=== PATIENT | male | born 1945 | race Caucasian/White ===

== ENCOUNTER 2016-10-31 23:15 | Inpatient (IN) | payer MEDICARE, OTHER ==
[~2016-10-31] VITALS: Ht 172.7 cm; Wt 76.7 kg
[~2016-10-31 23:15] MED LIST: AMLO2.5T PO; ASPI-482 PO; ATOR10TA PO; CLAR500T PO; CLOP75TA27 PO; ISOS10TA4 PO; LACT1TAB24 PO; LOSA25TA4 PO; MULT1TAB87 PO; NITR0.4T6 SL; OMEG300C PO; OMEP20CA5 PO; PANT40TA5 PO; PRED-220 PO; PRED5TAB PO
[2016-10-31] MEDS ORDERED: fentaNYL PF VIAL 100 MCG/2 ML VIAL IM ONE (23:30)
--- NOTE | 2016-10-31 23:32 | PHYS DOC ---
Past Medical History Past Medical History: CAD, GERD, High Cholesterol, Hypertension Past Surgical History: Other Additional Past Surgical Histo: Stents x 7; shoulder; left hand; hernia Alcohol Use: Occasionally Drug Use: None Adult General Chief Complaint Chief Complaint: LOWER BACK PAIN OR INJURY [facility] HPI Patient is a 71 year old male presents emergency Department with complaint of low back pain, back spasms that began approximately 9 PM this evening. Patient states that he was approximately 4-5 feet up on a ladder yesterday he went to the base of the ladder "kicked out" from underneath him resulting in a fall. He states he landed on top of the ladder. He denies loss of consciousness at the time of fall. He did hit the bridge of his nose as well as having some skin tears to his right forearm and his left elbow. Patient states he was otherwise doing fine and continued on several activities at the course the day as well as today. He states he is continuing with light activity and it is not bothering him. He states that when he was attempting to get up out of his chair this evening around 9 PM, states that he began to experience a lot of pain, tightness and spasms of the left side of his back. He denies radiation of the pain. He denies saddle anesthesia or incontinence of urine and bowel. Patient has had a previous low back surgery. He denies having any existing hardware in his back. Review of Systems Review of Systems Constitutional: Denies fever or chills [] Eyes: Denies change in visual acuity, redness, or eye pain [] HENT: Denies nasal congestion or sore throat [] Respiratory: Denies cough or shortness of breath [] Cardiovascular: No additional information not addressed in HPI [] GI: Denies abdominal pain, nausea, vomiting, bloody stools or diarrhea [] : Denies dysuria or hematuria [] Musculoskeletal: Denies back pain or joint pain [] Integument: Denies rash or skin lesions [] Neurologic: Denies headache, focal weakness or sensory changes [] Endocrine: Denies polyuria or polydipsia [] Current Medications Current Medications Current Medications Medications (Trade) Dose Ordered Sig/Dorothea Start Time Stop Time Status Last Admin Dose Admin Diazepam (Valium) 10 mg 1X ONCE 10/31/16 23:30 10/31/16 23:58 DC 10/31/16 23:48 10 MG Fentanyl Citrate (Fentanyl 2ml Vial) 50 mcg 1X ONCE 10/31/16 23:30 10/31/16 23:58 DC 10/31/16 23:47 50 MCG Ondansetron HCl (Zofran) 4 mg 1X ONCE 11/01/16 00:30 11/01/16 00:31 DC Sodium Chloride 500 ml @ 500 mls/hr 1X ONCE 11/01/16 00:30 11/01/16 01:29 11/01/16 00:25 500 MLS/HR Sodium Chloride (Normal Saline Flush) 10 ml QSHIFT PRN 11/01/16 00:30 Allergies Allergies Allergies Coded Allergies Type Severity Reaction Last Updated Verified morphine Adverse Reaction Intermediate VOMITING 03/07/16 Yes Physical Exam Physical Exam Constitutional: Well developed, well nourished,moderate distress, non-toxic appearance. Patient winces and groans in pain when he experienced spasms in his back. HENT: Normocephalic, bilateral external ears normal, oropharynx moist, no oral exudates, nose normal. Bruising to left side of his nasal bridge. There is no septal hematoma or active bleeding at this time. Eyes: PERRLA, EOMI, conjunctiva normal, no discharge. [] Neck: Normal range of motion, no tenderness, supple, no stridor. [] Cardiovascular:Heart rate regular rhythm, no murmur [] Lungs & Thorax: Bilateral breath sounds clear to auscultation [] Abdomen: Bowel sounds normal, soft, no tenderness, no masses, no pulsatile masses. [] Skin: There are skin tears to right forearm that are covered with bandages. Back: Patient has a soft ball size hematoma to his left lateral lower back. This is tender to palpation. Patient has active spasms in the paraspinous tissues of his lumbar spine in the same region. Patient does not have any complaints of midline tenderness. There is no palpable step-off or deformity. Patient does not have any pain in the CVA region. Extremities: No tenderness, no cyanosis, no clubbing, ROM intact, no edema. [] Neurologic: Alert and oriented X 3, normal motor function, normal sensory function, no focal deficits noted. [] Psychologic: Affect normal, judgement normal, mood normal. [] Current Patient Data Vital Signs Vital Signs Date Time Temp Pulse Resp B/P (MAP) Pulse Ox O2 Delivery O2 Flow Rate FiO2 11/01/16 01:02 62 17 119/68 (85) 94 Nasal Cannula 2.0 10/31/16 23:20 98.7 98.7 Lab Values Laboratory Tests Test 11/01/16 00:20 White Blood Count 8.1 x10^3/uL (4.0-11.0) Red Blood Count 4.21 x10^6/uL (4.30-5.70) L Hemoglobin 13.3 g/dL (13.0-17.5) Hematocrit 39.8 % (39.0-53.0) Mean Corpuscular Volume 94 fL (79-100) Mean Corpuscular Hemoglobin 32 pg (25-35) Mean Corpuscular Hemoglobin Concent 33 g/dL (31-37) Red Cell Distribution Width 13.6 % (11.5-14.5) Platelet Count 157 x10^3/uL (140-400) Neutrophils (%) (Auto) 52 % (31-73) Lymphocytes (%) (Auto) 31 % (24-48) Monocytes (%) (Auto) 11 % (0-9) H Eosinophils (%) (Auto) 6 % (0-3) H Basophils (%) (Auto) 1 % (0-3) Neutrophils # (Auto) 4.2 x10^3uL (1.8-7.7) Lymphocytes # (Auto) 2.5 x10^3/uL (1.0-4.8) Monocytes # (Auto) 0.8 x10^3/uL (0.0-1.1) Eosinophils # (Auto) 0.5 x10^3/uL (0.0-0.7) Basophils # (Auto) 0.1 x10^3/uL (0.0-0.2) Sodium Level 142 mmol/L (136-145) Potassium Level 3.9 mmol/L (3.5-5.1) Chloride Level 106 mmol/L (98-107) Carbon Dioxide Level 25 mmol/L (21-32) Anion Gap 11 (6-14) Blood Urea Nitrogen 25 mg/dL (8-26) Creatinine 1.2 mg/dL (0.7-1.3) Estimated GFR (Cockcroft-Gault) 60.0 BUN/Creatinine Ratio 21 (6-20) H Glucose Level 115 mg/dL (70-99) H Calcium Level 9.0 mg/dL (8.5-10.1) Magnesium Level 2.1 mg/dL (1.8-2.4) Total Bilirubin 0.6 mg/dL (0.2-1.0) Aspartate Amino Transferase (AST) 26 U/L (15-37) Alanine Aminotransferase (ALT) 36 U/L (16-63) Alkaline Phosphatase 105 U/L (46-116) Creatine Kinase 244 U/L (39-308) Creatine Kinase MB (Mass) 1.7 ng/mL (0.0-3.6) Creatine Kinase MB Relative Index 0.7 % (0-4) Troponin I Quantitative < 0.017 ng/mL (0.000-0.055) Total Protein 6.8 g/dL (6.4-8.2) Albumin 3.5 g/dL (3.4-5.0) Albumin/Globulin Ratio 1.1 (1.0-1.7) Laboratory Tests 11/01/16 00:20 Laboratory Tests 11/01/16 00:20 EKG EKG [] Radiology/Procedures Radiology/Procedures 3 views of patient's lumbar spine showed moderate to severe degenerative changes with moderate dextroscoliosis. No acute bony injury is seen. Course & Med Decision Making Course & Med Decision Making Patient received 50 g of fentanyl and 10 mg of Valium IM for his back pain and spasms. Approximately 20 minutes after patient received the medication, his called out for help. Patient was found sitting in a low semi-Fowlers position looking pale and slightly diaphoretic. He does not respond initially to verbal stimuli. So external rub was performed. Patient began to respond to that and into his name verbally. Patient states that he began to feel lightheaded while he was sitting down and then "must must have passed out. He denies any preceding palpitations, chest pain or shortness of breath. Patient was answering questions spontaneously and appropriately within a matter of a minute. There was no observed seizure-like activity. Patient was not incontinent of urine or stool. Patient was transferred to a bed and moved to a monitored room for further evaluation. EKG, CBC, CBC, cardiac isoenzymes and troponin were ordered with a half liter normal saline bolus. Twelve-lead EKG that was performed at 12:19 AM showed a sinus rhythm with a rate of 63 bpm. Patient has marginal QRS complex that appears to indicate a left bundle branch block. There is no ST elevation or depression. LA interval is 202 ms with QRS duration 146 ms and a QT duration of 443 ms. This was compared to a previous EKG that is consistent with the morphology of his EKG signature. 1255am: Patient was reevaluated by me at this time and states that he is feeling much better with improvement of lightheadedness. He again denies chest pain or palpitations. He states that the back pain is starting to "ease up" but he still feels tightness and spasms in his back. We discussed admission to the hospital for overnight observation to ensure that he does not have any further complications secondary to syncopal episode. And also to assist with pain management back spasms. I believe that his episode was due to the medication that he received. However, based on his past medical history of cardiac disease and coronary stents, I believe the best that he be admitted to ensure that he has no further complications. Patient agrees with this plan. Patient's primary care doctor's John Lai, who does not have admitting privileges at this facility. His freezer laboratory technician is at . Dragon Disclaimer Dragon Disclaimer This electronic medical record was generated, in whole or in part, using a voice recognition dictation system. Departure Departure Impression: Primary Impression: Syncope Additional Impression: Hematoma Disposition: 09 ADMITTED INPATIENT Admitting Physician: Jolly Staton Condition: STABLE Referrals: JOHN LAI Jr, MD (PCP) Problem Qualifiers ISABELLA SPAIN October 31, 2016 23:32
[2016-11-01 00:30] LABS: BASO # 0.1 x10^3/uL (0.0-0.2); BASO % 1 % (0-3); EOS % 6 % (0-3); HEMATOCRIT 39.8 % (39.0-53.0); HEMOGLOBIN 13.3 g/dL (13.0-17.5); LYMPH # 2.5 x10^3/uL (1.0-4.8); LYMPH % 31 % (24-48); MEAN CORPUSCULAR HEMOGLOBIN 32 pg (25-35); MEAN CORPUSCULAR HGB CONC 33 g/dL (31-37); MEAN CORPUSCULAR VOLUME 94 fL (79-100); MONO % 11 % (0-9); NEUT % 52 % (31-73); PLATELET COUNT 157 x10^3/uL (140-400); RED BLOOD COUNT 4.21 x10^6/uL (4.30-5.70); RED CELL DISTRIBUTION WIDTH 13.6 % (11.5-14.5); WHITE BLOOD COUNT 8.1 x10^3/uL (4.0-11.0)
[2016-11-01] MEDS ORDERED: ONDANSETRON PF 4 MG/2 ML VIAL. IV ONE (00:30)
[2016-11-01] MEDS ORDERED: IV NORMAL SALINE 500ML BAG 500 ML IV ONE (00:30)
[2016-11-01] MEDS ORDERED: 0.9 % SODIUM CHLORIDE 10 ML DISP.SYRIN. IV PRN (00:30)
[2016-11-01 00:46] LABS: CREATININE 1.2 mg/dL (0.7-1.3); POTASSIUM 3.9 mmol/L (3.5-5.1)
[2016-11-01 00:52] LABS: ALBUMIN 3.5 g/dL (3.4-5.0); ALBUMIN/GLOBULIN RATIO 1.1 (1.0-1.7); MAGNESIUM 2.1 mg/dL (1.8-2.4); TOTAL BILIRUBIN 0.6 mg/dL (0.2-1.0); TOTAL PROTEIN 6.8 g/dL (6.4-8.2)
[2016-11-01 01:00] LABS: CKMB MASS 1.7 ng/mL (0.0-3.6)
[2016-11-01] MEDS ORDERED: fentaNYL PF VIAL 100 MCG/2 ML VIAL IV PRN (01:45)
[2016-11-01] MEDS: IV NORMAL SALINE 1000ML BAG 1,000 ML IV SCH ×2 (02:25→11:30)
[2016-11-01 02:30] VITALS: BP 129/72
[2016-11-01 07:13] VITALS: BP 116/63
--- NOTE | 2016-11-01 08:02 | RAD ---
Indication fall. Low back pain. AP and lateral views of the lumbar spine were obtained as well as a coned view targeted to the lumbosacral junction. There is a probable transitional segment. Vertebral height and alignment are unremarkable. Small osteophytes are seen at several levels. No acute finding is seen. There is a calcification in the right abdomen. The etiology is unclear. A ureteral calculus is not excluded. Mild scoliosis is noted. IMPRESSION: No acute bony finding.
[2016-11-01] MEDS ORDERED: CYCL10TA2 PO (09:08)
[2016-11-01 11:00] VITALS: BP 132/84
--- NOTE | 2016-11-01 11:08 | PDOC1 ---
History and Physical Date of Admission Date of Admission DATE: 11/01/16 TIME: 11:00 Identification/Chief Complaint Chief Complaint back pain Problems: Source Source: Chart review, Patient History of Present Illness History of Present Illness Mr. Dumont, is a 71 year old male seen in ER for worsening back pain. Pain after falling off a ladder, he had continued to work, then the next day, had back spasms and pain, difficulty walking after IM valium, he had a 15 sec episode of unresponsiveness, he was then arousable and felt well. no loss of bladder or bowel, and he reports feeling very well now. I am unsure if he was on tele in the ER when this happened. Past Medical History Cardiovascular: CAD, HTN, Hyperlipidemia Pulmonary: Bronchitis Musculoskeletal: low back pain Endocrine: No pertinent hx Dermatology: No pertinent hx Past Surgical History Past Surgical History: No pertinent history Social History Smoke: <1 pack per day ALCOHOL: none Drugs: None Current Problem List Problem List Problems Medical Problems: (1) Hematoma Status: Acute (2) Syncope Status: Acute Problems: Current Medications Current Medications Current Medications Fentanyl Citrate (Fentanyl 2ml Vial) 50 mcg 1X ONCE IM Last administered on 23:47; Start 10/31/16 at 23:30; Stop 10/31/16 at 23:58; Status DC Diazepam (Valium) 10 mg 1X ONCE IM Last administered on 10/31/16 23:48; Start 10/31/16 at 23:30; Stop 10/31/16 at 23:58; Status DC Sodium Chloride (Normal Saline Flush) 10 ml QSHIFT PRN IV AFTER MEDS AND BLOOD DRAWS; Start 11/01/16 at 00:30 Sodium Chloride 500 ml @ 500 mls/hr 1X ONCE IV Last administered on 11/01/16 00:25; Start 11/01/16 at 00:30; Stop 11/01/16 at 01:29; Status DC Ondansetron HCl (Zofran) 4 mg 1X ONCE IV ; Start 11/01/16 at 00:30; Stop at 00:31; Status DC Fentanyl Citrate (Fentanyl 2ml Vial) 25 mcg PRN Q3HRS PRN IV PAIN; Start at 01:45 Sodium Chloride 1,000 ml @ 100 mls/hr Q10H IV Last administered on 5/7/17at 02 :25; Start 11/01/16 at 01:30; Stop 11/02/16 at 01:29 Diazepam (Valium) 2.5 mg PRN Q4HRS PRN IV muscle spasm; Start 11/01/16 at 01:45 Active Scripts Active Reported Prednisone 10 Mg Tablet 40 Mg PO DAILY Clarithromycin 500 Mg Tablet 1 Tab PO BID Prednisone 5 Mg Tablet 5 Mg PO Vitamin And Minerals (Multivitamins,Ther W-Minerals) 1 Each Tablet 1 Each PO Probiotic Acidophilus (Lactobacillus Acidophilus) 1 Each Tablet 1 Each PO Pantoprazole Sodium 40 Mg Tablet.dr 1 Tab PO QODAY Amlodipine Besylate 2.5 Mg Tablet 5 Mg PO DAILY Aspir 81 (Aspirin) 81 Mg Tablet.dr 1 PO DAILY NITROGLYCERIN SubLingual (Nitroglycerin) 0.4 Mg Tab.subl 0.4 Mg SL PRN Q5MIN PRN Losartan Potassium 25 Mg Tablet 100 Mg PO DAILY Isosorbide Mononitrate 10 Mg Tablet 60 Mg PO DAILY Fish Oil ([place]-3 Fatty Acids) 300 Mg Capsule 300 Mg PO Allergies Allergies: Coded Allergies: morphine (Verified Adverse Reaction, Intermediate, VOMITING, 03/07/16) ROS General: No: Chills, Night Sweats, Fatigue, Malaise, Appetite, Other PSYCHOLOGICAL ROS: No: Anxiety, Behavioral Disorder, Concentration difficultie , Decreased libido, Depression, Disorientation, Hallucinations, Hostility, Irritablity, Memory difficulties, Mood Swings, Obsessive thoughts, Physical abuse, Sexual abuse, Sleep disturbances, Suicidal ideation, Other Eyes: No Blurry vision, No Decreased vision, No Double vision, No Dry eyes, No Excessive tearing, No Eye Pain, No Itchy Eyes, No Loss of vision, No Photophobia , No Scotomata, No Uses contacts, No Uses glasses, No Other HEENT: No: Heacaches, Visual Changes, Hearing change, Nasal congestion, Nasal discharge, Oral lesions, Sinus pain, Sore Throat, Epistaxis, Sneezing, Snoring, Tinnitus, Vertigo, Vocal changes, Other Respiratory: No: Cough, Hemoptysis, Orthopnea, Pleuritic Pain, Shortness of breath, SOB with excertion, Sputum Changes, Stridor, Tachypnea, Wheezing, Other Cardiovascular: No Chest Pain, No Palpitations, No Orthopnea, No Paroxysmal Noc. Dyspnea, No Edema, No Lt Headedness, No Other Gastrointestinal: No Nausea, No Vomiting, No Abdominal Pain, No Diarrhea, No Constipation, No Melena, No Hematochezia, No Other Genitourinary: No Dysuria, No Frequency, No Incontinence, No Hematuria, No Retention, No Discharge, No Urgency, No Pain, No Flank Pain, No Other, No , No , No , No , No , No , No Musculoskeletal: Yes Muscle Pain, Yes Pain In: (back), No Gait Disturbance, No Joint Pain, No Joint Stiffness, No Joint Swelling, No Muscular Weakness, No Swelling In:, No Other Neurological: No Behavorial Changes, No Bowel/Bladder ControlChng, No Confusion , No Dizziness, No Gait Disturbance, No Headaches, No Impaired Coord/balance, No Memory Loss, No Numbness/Tingling, No Seizures, No Speech Problems, No Tremors, No Visual Changes, No Weakness, No Other Skin: No Dry Skin, No Eczema, No Hair Changes, No Lumps, No Mole Changes, No Mottling, No Nail Changes, No Pruritus, No Rash, No Skin Lesion Changes, No Other, No Acne Physical Exam General: Alert, Oriented X3, Cooperative, No acute distress HEENT: Atraumatic, PERRLA Lungs: Clear to auscultation, Normal air movement Heart: S1S2 Abdomen: Normal bowel sounds, Soft Rectal Exam: not examined Extremities: No clubbing, No edema, Normal pulses Skin: No rashes, No significant lesion Neuro: Normal speech, Normal tone, Sensation intact, Cranial nerves 3-12 NL Psych/Mental Status: Mental status NL, Mood NL Vitals Vitals Vital Signs Date Time Temp Pulse Resp B/P (MAP) Pulse Ox O2 Delivery O2 Flow Rate FiO2 11/01/16 07:35 Room Air 11/01/16 07:13 97.9 74 18 116/63 (80) 94 97.9 11/01/16 03:36 2.0 Labs Labs Laboratory Tests Test 11/01/16 00:20 11/01/16 07:30 White Blood Count 8.1 x10^3/uL (4.0-11.0) Red Blood Count 4.21 x10^6/uL (4.30-5.70) Hemoglobin 13.3 g/dL (13.0-17.5) Hematocrit 39.8 % (39.0-53.0) Mean Corpuscular Volume 94 fL (79-100) Mean Corpuscular Hemoglobin 32 pg (25-35) Mean Corpuscular Hemoglobin Concent 33 g/dL (31-37) Red Cell Distribution Width 13.6 % (11.5-14.5) Platelet Count 157 x10^3/uL (140-400) Neutrophils (%) (Auto) 52 % (31-73) Lymphocytes (%) (Auto) 31 % (24-48) Monocytes (%) (Auto) 11 % (0-9) Eosinophils (%) (Auto) 6 % (0-3) Basophils (%) (Auto) 1 % (0-3) Neutrophils # (Auto) 4.2 x10^3uL (1.8-7.7) Lymphocytes # (Auto) 2.5 x10^3/uL (1.0-4.8) Monocytes # (Auto) 0.8 x10^3/uL (0.0-1.1) Eosinophils # (Auto) 0.5 x10^3/uL (0.0-0.7) Basophils # (Auto) 0.1 x10^3/uL (0.0-0.2) Sodium Level 142 mmol/L (136-145) Potassium Level 3.9 mmol/L (3.5-5.1) Chloride Level 106 mmol/L (98-107) Carbon Dioxide Level 25 mmol/L (21-32) Anion Gap 11 (6-14) Blood Urea Nitrogen 25 mg/dL (8-26) Creatinine 1.2 mg/dL (0.7-1.3) Estimated GFR (Cockcroft-Gault) 60.0 BUN/Creatinine Ratio 21 (6-20) Glucose Level 115 mg/dL (70-99) Calcium Level 9.0 mg/dL (8.5-10.1) Magnesium Level 2.1 mg/dL (1.8-2.4) Total Bilirubin 0.6 mg/dL (0.2-1.0) Aspartate Amino Transf (AST/SGOT) 26 U/L (15-37) Alanine Aminotransferase (ALT/SGPT) 36 U/L (16-63) Alkaline Phosphatase 105 U/L (46-116) Creatine Kinase 244 U/L (39-308) 343 U/L (39-308) Creatine Kinase MB (Mass) 1.7 ng/mL (0.0-3.6) Creatine Kinase MB Relative Index 0.7 % (0-4) Troponin I Quantitative < 0.017 ng/mL (0.000-0.055) < 0.017 ng/mL (0.000-0.055) Total Protein 6.8 g/dL (6.4-8.2) Albumin 3.5 g/dL (3.4-5.0) Albumin/Globulin Ratio 1.1 (1.0-1.7) Laboratory Tests Test 11/01/16 00:20 11/01/16 07:30 White Blood Count 8.1 x10^3/uL (4.0-11.0) Red Blood Count 4.21 x10^6/uL (4.30-5.70) Hemoglobin 13.3 g/dL (13.0-17.5) Hematocrit 39.8 % (39.0-53.0) Mean Corpuscular Volume 94 fL (79-100) Mean Corpuscular Hemoglobin 32 pg (25-35) Mean Corpuscular Hemoglobin Concent 33 g/dL (31-37) Red Cell Distribution Width 13.6 % (11.5-14.5) Platelet Count 157 x10^3/uL (140-400) Neutrophils (%) (Auto) 52 % (31-73) Lymphocytes (%) (Auto) 31 % (24-48) Monocytes (%) (Auto) 11 % (0-9) Eosinophils (%) (Auto) 6 % (0-3) Basophils (%) (Auto) 1 % (0-3) Neutrophils # (Auto) 4.2 x10^3uL (1.8-7.7) Lymphocytes # (Auto) 2.5 x10^3/uL (1.0-4.8) Monocytes # (Auto) 0.8 x10^3/uL (0.0-1.1) Eosinophils # (Auto) 0.5 x10^3/uL (0.0-0.7) Basophils # (Auto) 0.1 x10^3/uL (0.0-0.2) Sodium Level 142 mmol/L (136-145) Potassium Level 3.9 mmol/L (3.5-5.1) Chloride Level 106 mmol/L (98-107) Carbon Dioxide Level 25 mmol/L (21-32) Anion Gap 11 (6-14) Blood Urea Nitrogen 25 mg/dL (8-26) Creatinine 1.2 mg/dL (0.7-1.3) Estimated GFR (Cockcroft-Gault) 60.0 BUN/Creatinine Ratio 21 (6-20) Glucose Level 115 mg/dL (70-99) Calcium Level 9.0 mg/dL (8.5-10.1) Magnesium Level 2.1 mg/dL (1.8-2.4) Total Bilirubin 0.6 mg/dL (0.2-1.0) Aspartate Amino Transf (AST/SGOT) 26 U/L (15-37) Alanine Aminotransferase (ALT/SGPT) 36 U/L (16-63) Alkaline Phosphatase 105 U/L (46-116) Creatine Kinase 244 U/L (39-308) 343 U/L (39-308) Creatine Kinase MB (Mass) 1.7 ng/mL (0.0-3.6) Creatine Kinase MB Relative Index 0.7 % (0-4) Troponin I Quantitative < 0.017 ng/mL (0.000-0.055) < 0.017 ng/mL (0.000-0.055) Total Protein 6.8 g/dL (6.4-8.2) Albumin 3.5 g/dL (3.4-5.0) Albumin/Globulin Ratio 1.1 (1.0-1.7) VTE Prophylaxis Ordered VTE Prophylaxis Devices: Yes VTE Pharmacological Prophylaxi: Yes Assessment/Plan Assessment/Plan Back pain, s/p fall off ladder, syncope after IM injection of valium feels well today, would like to DC Hx CAD, s/p stents, recent echo with Dr. Wood, has f/u with him in under 2 weeks tobaccoism, cessation attempted past 45 years, ADEBAYO CRENSHAW MD November 01, 2016 11:08
--- NOTE | 2016-11-01 11:34 | EKG ---
[facility] [address] [place] [id number] Test Date: 2016-11-01 Test Time: 00:19:23 Pat Name: CLIFF HIGHTOWER Department: Room: 404 Gender: M [employer] Maintainer: : [id number] Requested By: ISABELLA SPAIN Order Number: [id number] Reading MD: Tessy Chu Measurements Intervals [place] Rate: 63 P: -2 VT: 202 QRS: 0 QRSD: 146 T: 97 QT: 430 QTc: 443 Interpretive Statements SINUS RHYTHM LEFTWARD AXIS NON SPECIFIC INTRAVENTRICULAR BLOCK QRS(T) CONTOUR ABNORMALITY CONSIDER ANTEROSEPTAL MYOCARDIAL DAMAGE RI6.01 Unconfirmed report Compared to ECG 03/06/2016 10:56:39 Left-axis deviation now present Left bundle-branch block no longer present Electronically Signed On 11-01-2016 18:24:24 CDT by Tessy Chu
== END 2016-11-01 12:26 | disposition home or self-care (01) | DRG 552 ==
LOC: ER 23:15 → 4 NORTH 11-01 01:15
PROVIDERS: ADMIT Internal Medicine; ATTEND Internal Medicine
DX: M54.5 Low back pain (principal); M62.830 Muscle spasm of back; E78.00 Pure hypercholesterolemia, unspecified; R55 Syncope and collapse; E78.5 Hyperlipidemia, unspecified; F17.210 Nicotine dependence, cigarettes, uncomplicated; I10 Essential (primary) hypertension; I25.10 Atherosclerotic heart disease of native coronary artery without angina pectoris; K21.9 Gastro-esophageal reflux disease without esophagitis; S51.811A Laceration without foreign body of right forearm, initial encounter; W11.XXXA Fall on and from ladder, initial encounter; Y93.89 Activity, other specified; Y92.89 Other specified places as the place of occurrence of the external cause; Y99.8 Other external cause status; T42.4X5A Adverse effect of benzodiazepines, initial encounter
CPT/HCPCS: 36415; 72100; 80053; 82550; 82553; 83735; 84484; 85027; 93005; 96360; 96372; J3010; J3360; J7030; J7040; 99285-25

== ENCOUNTER 2017-08-08 04:54 | Inpatient (IN) | payer MEDICARE, OTHER ==
[2017-08-08] MEDS: ASPIRIN 325 MG TABLET PO (05:23)
[2017-08-08] MEDS: dilTIAZem IV PUSH 25 MG/5 ML VIAL IVP (05:24)
[2017-08-08 05:25] LABS: ADD MAN DIFF? NO
[2017-08-08 05:44] LABS: BASO # 0.1 x10^3/uL (0.0-0.2); BASO % 1 % (0-3); EOS # 0.2 x10^3/uL (0.0-0.7); EOS % 2 % (0-3); HEMATOCRIT 40.1 % (39.0-53.0); HEMOGLOBIN 13.6 g/dL (13.0-17.5); LYMPH # 2.7 x10^3/uL (1.0-4.8); LYMPH % 28 % (24-48); MEAN CORPUSCULAR HEMOGLOBIN 31 pg (25-35); MEAN CORPUSCULAR HGB CONC 34 g/dL (31-37); MEAN CORPUSCULAR VOLUME 92 fL (79-100); MONO # 0.9 x10^3/uL (0.0-1.1); MONO % 10 % (0-9); NEUT # 5.7 x10^3uL (1.8-7.7); NEUT % 59 % (31-73); PLATELET COUNT 166 x10^3/uL (140-400); RED BLOOD COUNT 4.37 x10^6/uL (4.30-5.70); RED CELL DISTRIBUTION WIDTH 15.9 % (11.5-14.5); WHITE BLOOD COUNT 9.5 x10^3/uL (4.0-11.0)
[2017-08-08 05:52] LABS: ANION GAP 13 (6-14); BLOOD UREA NITROGEN 23 mg/dL (8-26); BUN/CREATININE RATIO 23 (6-20); CALCIUM 8.9 mg/dL (8.5-10.1); CARBON DIOXIDE 25 mmol/L (21-32); CHLORIDE 106 mmol/L (98-107); GFR 73.9; GLUCOSE 113 mg/dL (70-99); POTASSIUM 3.2 mmol/L (3.5-5.1); SODIUM 144 mmol/L (136-145)
[2017-08-08 05:57] LABS: ALBUMIN 3.2 g/dL (3.4-5.0); ALBUMIN/GLOBULIN RATIO 0.9 (1.0-1.7); ALK PHOS 86 U/L (46-116); ALT (SGPT) 34 U/L (16-63); AST (SGOT) 22 U/L (15-37); MAGNESIUM 2.1 mg/dL (1.8-2.4); TOTAL BILIRUBIN 0.3 mg/dL (0.2-1.0); TOTAL PROTEIN 6.7 g/dL (6.4-8.2)
[2017-08-08 05:59] LABS: INR 0.9 (0.8-1.1); PARTIAL THROMBOPLASTIN TIME 28 SEC (24-38); PROTHROMBIN TIME PATIENT 11.8 SEC (11.7-14.0)
[2017-08-08 05:59] LABS: TROPONINI 0.022 ng/mL (0.000-0.055)
[2017-08-08] MEDS: IPRATRPIUM/ALBUTEROL 0.5/2.5MG 3 ML NEBU. NEB (05:59)
[2017-08-08 06:02] LABS: NT-PRO BNP 127 pg/mL (0-124)
[2017-08-08] MEDS ORDERED: ACETAMINOPHEN 325 MG TABLET. PO (06:15)
[2017-08-08] MEDS ORDERED: NITROGLYCERIN SUBLINGUAL 0.4 MG BOTTLE OF 25. SL ×2 (06:15→09:30)
[2017-08-08] MEDS ORDERED: ONDANSETRON PF 4 MG/2 ML VIAL. IV (06:15)
[2017-08-08] MEDS ORDERED: HEPARIN for IV BOLUS 10,000 UNIT/10 ML VIAL. IV (06:15)
[2017-08-08] MEDS: POTASSIUM CHLORIDE 20 MEQ TABLET.ER. PO (06:19)
[2017-08-08] MEDS: dilTIAZem VIAL 125 MG in IV DEXTROSE 5% 100 ML IV (06:38)
[2017-08-08] MEDS: HEPARIN for IV BOLUS 10,000 UNIT/10 ML VIAL. IV (06:53)
[2017-08-08] MEDS: HEPARIN 25,000UTS/500ML PREMIX 500 ML IV ×2 (06:55→14:05)
[2017-08-08] MEDS: ANTI-COAG MONITOR BY PHARMACY. MC (08:07)
[2017-08-08] MEDS ORDERED: NICOTINE 21MG PATCH. TD (09:30)
[2017-08-08] MEDS ORDERED: NICOTINE POLACRILEX 2MG GUM PACKAGE of 12. BC (09:30)
[2017-08-08] MEDS: PANTOPRAZOLE 40 MG TABLET.DR. PO (09:41)
[2017-08-08] MEDS: dilTIAZem HCL 30 MG TABLET PO (09:42)
[2017-08-08] MEDS: METOPROLOL TART IMMED RELEASE 50 MG TABLET. PO (09:42)
[2017-08-08] MEDS: ALPRAZolam 0.25 MG TABLET PO (09:42)
[2017-08-08] MEDS: IV NORMAL SALINE 500ML BAG 500 ML IV ×2 (09:43→11:23)
[2017-08-08 09:44] LABS: TROPONINI 1.561 ng/mL (0.000-0.055)
[2017-08-08] MEDS: LOSARTAN POTASSIUM 50 MG TABLET. PO (10:00)
[2017-08-08] MEDS: HYDROCORTISONE SOD SUCC/PF 100 MG/2 ML VIAL. IV (12:06)
[2017-08-08] MEDS: IV NORMAL SALINE 1000ML BAG 1,000 ML IV ×2 (12:07→14:05)
[2017-08-08] MEDS: CALCIUM CHLORIDE 1,000 MG in IV DEXTROSE 5% 50 ML IV (12:12)
[2017-08-08 13:21] LABS: UNFRACTIONATED HEPARIN TESTING 0.29 IU/mL (0.30-0.70)
[2017-08-08 13:26] LABS: TROPONINI 2.634 ng/mL (0.000-0.055)
[2017-08-08] MEDS ORDERED: HYDROmorphone 2 MG/ML VIAL IVP (13:45)
[2017-08-08] MEDS ORDERED: METOPROLOL TART IMMED RELEASE 50 MG TABLET. PO (21:00)
[2017-08-09 05:25] LABS: ADD MAN DIFF? NO
[2017-08-09] MEDS: IV NORMAL SALINE 1000ML BAG 1,000 ML IV (05:32)
[2017-08-09 05:36] LABS: BASO % 0 % (0-3); EOS # 0.2 x10^3/uL (0.0-0.7); EOS % 3 % (0-3); HEMATOCRIT 34.2 % (39.0-53.0); HEMOGLOBIN 11.6 g/dL (13.0-17.5); LYMPH # 2.6 x10^3/uL (1.0-4.8); LYMPH % 27 % (24-48); MEAN CORPUSCULAR HEMOGLOBIN 31 pg (25-35); MEAN CORPUSCULAR HGB CONC 34 g/dL (31-37); MEAN CORPUSCULAR VOLUME 92 fL (79-100); MONO # 0.7 x10^3/uL (0.0-1.1); MONO % 8 % (0-9); NEUT % 63 % (31-73); PLATELET COUNT 122 x10^3/uL (140-400); RED BLOOD COUNT 3.72 x10^6/uL (4.30-5.70); RED CELL DISTRIBUTION WIDTH 16.1 % (11.5-14.5); WHITE BLOOD COUNT 9.6 x10^3/uL (4.0-11.0)
[2017-08-09 05:57] LABS: TROPONINI 0.965 ng/mL (0.000-0.055)
[2017-08-09 06:13] LABS: ANION GAP 9 (6-14); BLOOD UREA NITROGEN 20 mg/dL (8-26); CALCIUM 8.5 mg/dL (8.5-10.1); CARBON DIOXIDE 24 mmol/L (21-32); CHLORIDE 109 mmol/L (98-107); GFR 73.9; GLUCOSE 104 mg/dL (70-99); POTASSIUM 3.8 mmol/L (3.5-5.1); SODIUM 142 mmol/L (136-145)
[2017-08-09] MEDS: HEPARIN 25,000UTS/500ML PREMIX 500 ML IV (07:15)
[2017-08-09] MEDS ORDERED: ASPIRIN ENTERIC COATED 325 MG TABLET.DR. PO (09:00)
[2017-08-09] MEDS ORDERED: ASPIRIN ENTERIC COATED 81 MG TABLET.DR. PO (09:00)
[2017-08-09] MEDS: ANTI-COAG MONITOR BY PHARMACY. MC (10:12)
[2017-08-09 16:15] LABS: MRSA BY PCR Negative (Negative)
[2017-08-09] MEDS ORDERED: SIMVASTATIN 20 MG TABLET PO (21:00)
== END 2017-08-09 09:55 | disposition left against medical advice (07) | DRG 280 ==
LOC: ER 04:54 → 2 NORTH 05:17 → 1 WEST ICU 12:45
DX: I21.4 Non-ST elevation (NSTEMI) myocardial infarction (principal); I50.31 Acute diastolic (congestive) heart failure; I95.9 Hypotension, unspecified; I48.91 Unspecified atrial fibrillation; I44.7 Left bundle-branch block, unspecified; J44.9 Chronic obstructive pulmonary disease, unspecified; I11.0 Hypertensive heart disease with heart failure; E44.1 Mild protein-calorie malnutrition; Z53.21 Procedure and treatment not carried out due to patient leaving prior to being seen by health care provider; E78.5 Hyperlipidemia, unspecified; E87.6 Hypokalemia; F17.210 Nicotine dependence, cigarettes, uncomplicated; I25.119 Atherosclerotic heart disease of native coronary artery with unspecified angina pectoris; M54.5 Low back pain; J06.9 Acute upper respiratory infection, unspecified; K21.9 Gastro-esophageal reflux disease without esophagitis; Z79.82 Long term (current) use of aspirin; Z90.49 Acquired absence of other specified parts of digestive tract; Z95.5 Presence of coronary angioplasty implant and graft
CPT/HCPCS: 36415; 71045; 80048; 80053; 83735; 83880; 84484; 85025; 85520; 85610; 85730; 87641; 93005; 94640; 96374; 99291-25; 99406; J1644; J1720; J3490; J7030; J7040; J7620

== ENCOUNTER 2018-06-14 08:48 | Emergency (ER) | payer MEDICARE, OTHER ==
[~2018-06-14] VITALS: Ht 172.7 cm; Wt 68.9 kg
[~2018-06-14 08:48] MED LIST changes: -AMLO2.5T PO; +AMLO2.5T3 PO; -CLOP75TA27 PO; +CLOP75TA57 PO; +CYCL10TA2 PO; -LOSA25TA4 PO; +LOSA25TA54 PO; +NITR0.4T22 SL; -NITR0.4T6 SL; +SIMV20TA3 PO
[2018-06-14 09:01] VITALS: BP 134/65
[2018-06-14] MEDS ORDERED: HYDROcodone/APAP 7.5/325MG 1 TAB TABLET PO ONE (09:15)
--- NOTE | 2018-06-14 09:51 | RAD ---
FOOT RIGHT 3V, ANKLE RIGHT 3V History: RIGHT FOOT PAIN AND SWELLING X 3 DAYS. Comparison: None are available 3 view portable right ankle Soft tissue swelling around the ankle. There is evidence of a joint effusion at the tibiotalar joint. Mild widening of the lateral ankle mortise, suggesting tibiotalar instability such as from ligamentous injury. Tiny calcified plaque identified just medial to the medial malleolus, nonspecific but could represent a tiny avulsion fracture. There is degenerative change with bone hypertrophy and possible bone fragmentation at medial and lateral malleoli. IMPRESSION: 1. Soft tissue swelling and joint effusion. This could be posttraumatic, but if no history of trauma, consider inflammatory or infectious etiology. 2. Widening of the lateral ankle mortise suggesting instability, such as from ligamentous or tendinous injury. 3. Tiny thomas of calcification adjacent to the medial malleolus, potentially a tiny avulsion fracture. 3 view portable right foot No evidence of acute fracture. Alignment appears intact. Tibiotalar joint effusion again identified. There is an accessory navicular bone at the medial navicular. A couple of chronic ossicles seen adjacent to the medial malleolus likely due to old trauma. IMPRESSION: No additional acute findings in the foot. See ankle report above. Electronically signed by: Yonatan Lucas MD (06/14/2018 9:47 AM) [id number]
--- NOTE | 2018-06-14 10:06 | PHYS DOC ---
Past Medical History Past Medical History: CAD, GERD, High Cholesterol, Hypertension Past Surgical History: Appendectomy, Other Additional Past Surgical Histo: Stents x 7; shoulder; left hand; hernia, COLONRESECTION Additional Information: 1 PACK/DAY Alcohol Use: Rarely Drug Use: None Adult General Chief Complaint Chief Complaint: LOWER EXT PAIN HPI HPI Patient is a 73 year old male who presents with ankle pain from an injury that occurred 3 days ago. The patient states that the swelling and bruising has been increasing. He was not seen immediately because he thought that it would get better. It is very painful to bear weight on that extremity. He denies any other injury. He has been taking his at home pain medication but did not take a dose today. Review of Systems Review of Systems Constitutional: Denies fever or chills [] Respiratory: Denies cough or shortness of breath [] Cardiovascular: No additional information not addressed in HPI [] GI: Denies abdominal pain, nausea, vomiting, bloody stools or diarrhea [] : Denies dysuria or hematuria [] Musculoskeletal: See history of present illness Integument: Denies rash or skin lesions [] Neurologic: Denies headache, focal weakness or sensory changes [] Endocrine: Denies polyuria or polydipsia [] All other systems were reviewed and found to be within normal limits, except as documented in this note. Current Medications Current Medications Current Medications Medications (Trade) Dose Ordered Sig/Dorothea Start Time Stop Time Status Last Admin Dose Admin Acetaminophen/ Hydrocodone Bitart (Lortab 7.5/325) 1 tab 1X ONCE 06/14/18 09:15 06/14/18 09:16 DC 06/14/18 09:49 1 TAB Allergies Allergies Allergies Coded Allergies Type Severity Reaction Last Updated Verified morphine Adverse Reaction Intermediate VOMITING 03/07/16 Yes fentanyl Adverse Reaction Unknown 08/08/17 Yes Physical Exam Physical Exam Constitutional: Well developed, well nourished, no acute distress, non-toxic appearance. [] Cardiovascular:Heart rate regular rhythm, no murmur [] Lungs & Thorax: Bilateral breath sounds clear to auscultation [] Abdomen: Bowel sounds normal, soft, no tenderness, no masses, no pulsatile masses. [] Skin: Warm, dry, no erythema, no rash. [] Back: No tenderness, no CVA tenderness. [] Extremities: tenderness to right ankle and foot with edema and ecchymosis noted , no calor, no cyanosis, no clubbing, ROM decreased due to pain and swelling, pulses and sensation are intact distal to injury Neurologic: Alert and oriented X 3, normal motor function, normal sensory function, no focal deficits noted. [] Psychologic: Affect normal, judgement normal, mood normal. [] Current Patient Data Vital Signs Vital Signs Date Time Temp Pulse Resp B/P (MAP) Pulse Ox O2 Delivery O2 Flow Rate FiO2 06/14/18 09:49 18 100 Room Air 06/14/18 09:01 97.9 78 134/65 (88) 97.9 EKG EKG [] Radiology/Procedures Radiology/Procedures [] PATIENT: CLIFF HIGHTOWER ACCOUNT: [id number] : 1945 LOCATION: ER AGE: 73 SEX: M EXAM STATUS: REG ER ORD. PHYSICIAN: BHANU DICKERSON APRN REASON: injured 3 days ago, swelling and ecchymosis PROCEDURE: ANKLE RIGHT 3V FOOT RIGHT 3V, ANKLE RIGHT 3V History: RIGHT FOOT PAIN AND SWELLING X 3 DAYS. Comparison: None are available 3 view portable right ankle Soft tissue swelling around the ankle. There is evidence of a joint effusion at the tibiotalar joint. Mild widening of the lateral ankle mortise, suggesting tibiotalar instability such as from ligamentous injury. Tiny calcified plaque identified just medial to the medial malleolus, nonspecific but could represent a tiny avulsion fracture. There is degenerative change with bone hypertrophy and possible bone fragmentation at medial and lateral malleoli. IMPRESSION: 1. Soft tissue swelling and joint effusion. This could be posttraumatic, but if no history of trauma, consider inflammatory or infectious etiology. 2. Widening of the lateral ankle mortise suggesting instability, such as from ligamentous or tendinous injury. 3. Tiny thomas of calcification adjacent to the medial malleolus, potentially a tiny avulsion fracture. 3 view portable right foot No evidence of acute fracture. Alignment appears intact. Tibiotalar joint effusion again identified. There is an accessory navicular bone at the medial navicular. A couple of chronic ossicles seen adjacent to the medial malleolus likely due to old trauma. IMPRESSION: No additional acute findings in the foot. See ankle report above. Electronically signed by: Yonatan Lucas MD (06/14/2018 9:47 AM) [id number] DICTATED and SIGNED BY: YONATAN LUCAS MD DATE: 06/14/18 0943 Course & Med Decision Making Course & Med Decision Making Pertinent Labs and Imaging studies reviewed. (See chart for details) []The patient has been placed in a cam boot and is to follow-up with orthopedics. He is in agreement with this plan. He is to continue was at home pain medication. Dragon Disclaimer Dragon Disclaimer This electronic medical record was generated, in whole or in part, using a voice recognition dictation system. Departure Departure Impression: Primary Impression: Injury of ligament Disposition: 01 HOME, SELF-CARE Condition: STABLE Referrals: SUMI PEREA MD (PCP) AMARJIT JIN MD Patient Instructions: Ankle Instability, Chronic with [facility] Additional Instructions: Wear the cam boot for comfort. Follow up with orthopedics at their earliest available for further evaluation and treatment of your injury. You may continue to take your at home pain medication. BHANU DICKERSON APRN Jun 14, 2018 10:05
== END 2018-06-14 11:05 | disposition home or self-care (01) ==
LOC: ER 08:48
DX: S90.01XA Contusion of right ankle, initial encounter (principal); K21.9 Gastro-esophageal reflux disease without esophagitis; I25.10 Atherosclerotic heart disease of native coronary artery without angina pectoris; E78.00 Pure hypercholesterolemia, unspecified; I10 Essential (primary) hypertension; F17.200 Nicotine dependence, unspecified, uncomplicated; Z88.5 Allergy status to narcotic agent; Z88.8 Allergy status to other drugs, medicaments and biological substances; X58.XXXA Exposure to other specified factors, initial encounter; Y93.89 Activity, other specified; Y92.89 Other specified places as the place of occurrence of the external cause; Y99.8 Other external cause status
CPT/HCPCS: 73610; 73630; 99283

== ENCOUNTER 2018-06-15 15:43 | Emergency (ER) | payer MEDICARE, OTHER ==
[~2018-06-15] VITALS: Ht 172.7 cm; Wt 68.9 kg
--- NOTE | 2018-06-15 16:37 | PHYS DOC ---
Past Medical History Past Medical History: CAD, GERD, High Cholesterol, Hypertension Past Surgical History: Appendectomy, Other Additional Past Surgical Histo: Stents x 7; shoulder; left hand; hernia, COLONRESECTION Alcohol Use: Rarely Drug Use: None Adult General Chief Complaint Chief Complaint: ABNORMAL LABS HPI HPI Patient is a 73 year old male with history of hypertension, high cholesterol, CAD with stents, on Coumadin, who presents today complaining of elevated INR, patient states he was at the dental internship's office today, they did his blood work, he states his INR was 9.0, he states he was sent to the ED to be evaluated , he is also complaining of blood in the urine since Wednesday which is 5 days. Patient denies any bloody stools. PCP Dr. Lama [employer] Dr. Wood Review of Systems Review of Systems Constitutional: Denies fever or chills [] Eyes: Denies change in visual acuity, redness, or eye pain [] HENT: Denies nasal congestion or sore throat [] Respiratory: Denies cough or shortness of breath [] Cardiovascular: Reports elevated INR. No additional information not addressed in HPI [] GI: Denies abdominal pain, nausea, vomiting, bloody stools or diarrhea [] : Reports hematuria, denies dysuria Musculoskeletal: Denies back pain or joint pain [] Integument: Denies rash or skin lesions [] Neurologic: Denies headache, focal weakness or sensory changes [] dipsia [] All other systems were reviewed and found to be within normal limits, except as documented in this note. Current Medications Current Medications Current Medications Medications (Trade) Dose Ordered Sig/Dorothea Start Time Stop Time Status Last Admin Dose Admin Acetaminophen/ Hydrocodone Bitart (Lortab 5/325) 1 tab 1X ONCE 06/15/18 17:00 06/15/18 17:01 DC 06/15/18 17:15 1 TAB Phytonadione (Mephyton Oral Soln) 5 mg 1X ONCE 06/15/18 17:45 06/15/18 17:46 DC 06/15/18 18:02 5 MG Allergies Allergies Allergies Coded Allergies Type Severity Reaction Last Updated Verified morphine Adverse Reaction Intermediate VOMITING 03/07/16 Yes fentanyl Adverse Reaction Unknown 08/08/17 Yes Physical Exam Physical Exam Constitutional: Well developed, well nourished, no acute distress, non-toxic appearance. [] HENT: Normocephalic, atraumatic, bilateral external ears normal, oropharynx moist, no oral exudates, nose normal. [] Eyes: PERRLA, EOMI, conjunctiva normal, no discharge. [] Neck: Normal range of motion, no tenderness, supple, no stridor. [] Cardiovascular:Heart rate regular rhythm, no murmur [] Lungs & Thorax: Bilateral breath sounds clear to auscultation [] Abdomen: Bowel sounds normal, soft, no tenderness, no masses, no pulsatile masses. [] Skin: Warm, dry, no erythema, no rash. [] Back: No tenderness, no CVA tenderness. [] Extremities: No tenderness, no cyanosis, no clubbing, ROM intact, no edema. [] Neurologic: Alert and oriented X 3, normal motor function, normal sensory function, no focal deficits noted. [] Psychologic: Affect normal, judgement normal, mood normal. [] Current Patient Data Vital Signs Vital Signs Date Time Temp Pulse Resp B/P (MAP) Pulse Ox O2 Delivery O2 Flow Rate FiO2 06/15/18 17:29 70 16 154/73 (100) 98 Room Air 06/15/18 17:03 98.1 98.1 Lab Values Laboratory Tests Test 06/15/18 15:11 06/15/18 16:43 Prothrombin Time 62.2 SEC (11.7-14.0) H Prothrombin Time INR 7.1 (0.8-1.1) *H PTT 94 SEC (24-38) H White Blood Count 7.8 x10^3/uL (4.0-11.0) Red Blood Count 4.14 x10^6/uL (4.30-5.70) L Hemoglobin 13.2 g/dL (13.0-17.5) Hematocrit 38.2 % (39.0-53.0) L Mean Corpuscular Volume 92 fL (79-100) Mean Corpuscular Hemoglobin 32 pg (25-35) Mean Corpuscular Hemoglobin Concent 35 g/dL (31-37) Red Cell Distribution Width 14.6 % (11.5-14.5) H Platelet Count 167 x10^3/uL (140-400) Neutrophils (%) (Auto) 63 % (31-73) Lymphocytes (%) (Auto) 21 % (24-48) L Monocytes (%) (Auto) 10 % (0-9) H Eosinophils (%) (Auto) 5 % (0-3) H Basophils (%) (Auto) 1 % (0-3) Neutrophils # (Auto) 4.9 x10^3uL (1.8-7.7) Lymphocytes # (Auto) 1.7 x10^3/uL (1.0-4.8) Monocytes # (Auto) 0.8 x10^3/uL (0.0-1.1) Eosinophils # (Auto) 0.4 x10^3/uL (0.0-0.7) Basophils # (Auto) 0.1 x10^3/uL (0.0-0.2) Sodium Level 141 mmol/L (136-145) Potassium Level 4.2 mmol/L (3.5-5.1) Chloride Level 105 mmol/L (98-107) Carbon Dioxide Level 26 mmol/L (21-32) Anion Gap 10 (6-14) Blood Urea Nitrogen 18 mg/dL (8-26) Creatinine 1.0 mg/dL (0.7-1.3) Estimated GFR (Cockcroft-Gault) 73.7 Glucose Level 101 mg/dL (70-99) H Calcium Level 9.2 mg/dL (8.5-10.1) Laboratory Tests 06/15/18 16:43 Laboratory Tests 06/15/18 16:43 EKG EKG [] Radiology/Procedures Radiology/Procedures [] Course & Med Decision Making Course & Med Decision Making Pertinent Labs and Imaging studies reviewed. (See chart for details) This is a 73-year-old male patient with history of stents on Coumadin who presents today to be evaluated for elevated INR and hematuria. Hematuria has been going on for 5 days and today he was at the dental internship's office and his INR was 9. INR in the ED 7.1, PT 62.2, APTT 94.4, hemoglobin 13.2, hematocrit 38.2. Patient was given 5 mg of vitamin K by mouth. He was offered patient admission, he declined and signed out AMA. He states he cannot be in the hospital. He was given the risk of leaving AMA including and disability. Dragon Disclaimer Dragon Disclaimer This electronic medical record was generated, in whole or in part, using a voice recognition dictation system. Departure Departure Impression: Primary Impression: Elevated INR Additional Impression: Hematuria Disposition: 07 AGAINST MEDICAL ADVICE Condition: STABLE (musculoskeletal) Referrals: SUMI PEREA MD (PCP) Problem Qualifiers Additional Impression: Hematuria Hematuria type: gross Qualified Codes: R31.0 - Gross hematuria CHARLEY DICKSON PHYSICIAN'S ASSISTANT Jun 15, 2018 16:37
[2018-06-15 17:00] LABS: BASO # 0.1 x10^3/uL (0.0-0.2); BASO % 1 % (0-3); EOS # 0.4 x10^3/uL (0.0-0.7); EOS % 5 % (0-3); HEMATOCRIT 38.2 % (39.0-53.0); HEMOGLOBIN 13.2 g/dL (13.0-17.5); LYMPH # 1.7 x10^3/uL (1.0-4.8); LYMPH % 21 % (24-48); MEAN CORPUSCULAR HEMOGLOBIN 32 pg (25-35); MEAN CORPUSCULAR HGB CONC 35 g/dL (31-37); MEAN CORPUSCULAR VOLUME 92 fL (79-100); MONO # 0.8 x10^3/uL (0.0-1.1); MONO % 10 % (0-9); NEUT # 4.9 x10^3uL (1.8-7.7); NEUT % 63 % (31-73); PLATELET COUNT 167 x10^3/uL (140-400); RED BLOOD COUNT 4.14 x10^6/uL (4.30-5.70); RED CELL DISTRIBUTION WIDTH 14.6 % (11.5-14.5); WHITE BLOOD COUNT 7.8 x10^3/uL (4.0-11.0)
[2018-06-15] MEDS ORDERED: HYDROcodone/APAP 5/325MG 1 TAB TABLET PO ONE (17:00)
[2018-06-15 17:08] LABS: CALCIUM 9.2 mg/dL (8.5-10.1); GFR 73.7; POTASSIUM 4.2 mmol/L (3.5-5.1)
[2018-06-15 17:12] LABS: PROTHROMBIN TIME PATIENT 62.2 SEC (11.7-14.0)
[2018-06-15] MEDS ORDERED: PHYTONADIONE 10 MG/ML ORAL SOLUTION. PO ONE (17:45)
[2018-06-15 17:59] VITALS: BP 153/71
== END 2018-06-15 18:39 | disposition left against medical advice (07) ==
LOC: ER 15:43
DX: R79.1 Abnormal coagulation profile (principal); R31.0 Gross hematuria; E78.00 Pure hypercholesterolemia, unspecified; I10 Essential (primary) hypertension; K21.9 Gastro-esophageal reflux disease without esophagitis; I25.10 Atherosclerotic heart disease of native coronary artery without angina pectoris; Z95.5 Presence of coronary angioplasty implant and graft; Z90.89 Acquired absence of other organs; Z98.890 Other specified postprocedural states; Z88.4 Allergy status to anesthetic agent; Z88.5 Allergy status to narcotic agent
CPT/HCPCS: 36415; 80048; 85025; 85610; 85730; 99283